=== PATIENT | female | born 1980 | race Two or more races ===

== ENCOUNTER 2023-04-13 15:31 | Emergency (ER) | payer OTHER ==
[~2023-04-13] VITALS: Ht 152.4 cm; Wt 68.9 kg
[2023-04-13] MEDS ORDERED: NAPROXEN500 MG PO (17:52)
== END 2023-04-13 18:02 | disposition home or self-care (01) ==
LOC: ER 15:32
DX: S20.219A Contusion of unspecified front wall of thorax, initial encounter (principal); X58.XXXA Exposure to other specified factors, initial encounter; Y93.89 Activity, other specified; Y92.89 Other specified places as the place of occurrence of the external cause; Y99.9 Unspecified external cause status